=== PATIENT | female | born 1990 | race Hispanic/Latino ===

== ENCOUNTER 2023-04-12 03:01 | Emergency (ER) | payer BC, OTHER ==
[~2023-04-12] VITALS: Ht 167.6 cm; Wt 120.7 kg
[2023-04-12] MEDS ORDERED: HYDROCODONE/APAP 5MG-325MG TAB PO ONE (03:30)
[2023-04-12] MEDS ORDERED: KETOROLAC TROMETHAMINE 30 MG/ML VIAL IM ONE (03:30)
[2023-04-12] MEDS ORDERED: ONDANSETRON HCL 4 MG ORAL DISINTEGRATING TAB PO ONE (03:30)
[2023-04-12] MEDS ORDERED: KETOROLAC TROMETHAMINE 60 MG/2 ML VIAL ONE (03:32)
[2023-04-12] MEDS ORDERED: ZANAFLEX4 MG PO (03:34)
[2023-04-12] MEDS ORDERED: TYLENOL325 MG PO (03:34)
[2023-04-12] MEDS ORDERED: IBUPROFEN200 MG PO (03:34)
[2023-04-12] MEDS ORDERED: PREDNISONE20 MG PO (03:34)
[2023-04-12 03:50] VITALS: BP 129/76; PULSE 98; RESP 18; TEMP 97.8; O2SAT 96
== END 2023-04-12 03:50 | disposition home or self-care (01) ==
LOC: FSED 03:06
DX: M54.42 Lumbago with sciatica, left side (principal); M47.812 Spondylosis without myelopathy or radiculopathy, cervical region; M47.816 Spondylosis without myelopathy or radiculopathy, lumbar region; E66.01 Morbid (severe) obesity due to excess calories
CPT/HCPCS: 81003; 96372; 99283; J1885 ×2; Q0162